=== PATIENT | female | born 1980 | race Caucasian/White ===

== ENCOUNTER 2016-10-12 18:32 | Emergency (ER) ==
--- NOTE | 2016-10-12 20:04 | PROVIDER DOCUMENTATION ---
HPI-Musculoskeletal Pain/Inj - GENERAL Chief Complaint: Back Pain Stated Complaint: FALL (FLANK PAIN) Time Seen by Provider: 10/12/16 20:01 - HX OF PRESENT ILLNESS-MUSKULOSKELTAL Nature of Presenting Problem: Pt fell this morning walking outside slipped on the ice a slid down wheelchair ramp. Pt c/o right SI joint pain with Right buttocks pain. 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) Psychiatric: reports: anxiety, depression Endocrine/Immune: reports: Diabetes Other Conditions: reports: denies history - PRIOR SURGERIES/PROCEDURES Surgical/Procedure History: reports: appendectomy, BTL, - PRIOR HOSPITALIZATIONS Prior Hospitalizations: reports: none - IMMUNIZATION STATUS Childhood Immunizations: See Nurse Assessment Flu Vaccine: See Nurse Assessment - FAMILY HISTORY Family History: reviewed, not pertinent Departure - Departure Time of Disposition Order: 21:41 DIAGNOSIS: Contusion, hip Qualifiers: Encounter type: initial encounter Laterality: right Qualified Code(s): S70.01XA - Contusion of right hip, initial encounter Disposition: HOME 01 Certified Medical Emergency: Emergent Condition: Critical Additional Instructions: ED Follow Up Instructions: You have been treated by a care provider in the Emergency Department. These instructions are being provided to you so you can have an understanding of how to care for yourself upon discharge. Upon discharge from the Emergency Department, you are responsible for making arrangements for follow-up care by a physician of your choice. Take all prescribed medications as directed. Return to the Emergency Department immediately for any new or worsening symptoms. You may call the Physician Referral phone number at [phone] to obtain a list of Physicians who are taking new patients. Prescriptions: Ketorolac [Toradol] 10 mg PO Q6H PRN PRN #6 tablet PRN Reason: Pain
[2016-10-12] MEDS ORDERED: ZOFRAN ODT PO ONE (20:05)
[2016-10-12] MEDS ORDERED: TORADOL IM ONE (20:05)
[2016-10-12 21:59] VITALS: BP 177/72
--- NOTE | 2016-10-13 10:27 | Diag Imaging Result Document ---
PROCEDURE NAME: HIP W/PELVIS BILAT 2 VIEWS - 10/12/2016 BILATERAL HIPS AND PELVIS 5 VIEWS: FINDINGS: There is no fracture identified. There is no dislocation seen. There is a transitional lumbar sacral vertebra noted with possible pseudoarthrosis between the right ala of the transitional and 1st sacral vertebra. IMPRESSION: No evidence of fracture or dislocation.
== END 2016-10-12 21:59 | disposition home or self-care (01) ==
LOC: P.ED 18:32
DX: S70.01XA Contusion of right hip, initial encounter (principal); M54.5 Low back pain; R10.9 Unspecified abdominal pain; M79.1 Myalgia; M79.604 Pain in right leg; M53.3 Sacrococcygeal disorders, not elsewhere classified; I10 Essential (primary) hypertension; E11.9 Type 2 diabetes mellitus without complications; Z79.899 Other long term (current) drug therapy; W00.1XXA Fall from stairs and steps due to ice and snow, initial encounter
CPT/HCPCS: 73521; 96372; J1885

== ENCOUNTER 2019-08-03 08:29 | Inpatient (IN) ==
--- NOTE | 2019-08-03 09:50 | PROVIDER DOCUMENTATION ---
HPI-Rash/Wound/ReCheck - General Chief Complaint: Insect Bite/Sting Stated Complaint: SPIDER BITE ON LEG Time Seen by Provider: 08/03/19 08:59 Source: patient Allergies/Adverse Reactions: Allergies Allergy/AdvReac Type Severity Reaction Status Date / Time No Known Allergies Allergy Verified 07/28/19 00:49 Home Medications: Home Medication List Medication Instructions Recorded Confirmed Last Taken Type Metformin [Glucophage] 1,000 mg PO BID 05/31/19 07/28/19 Unknown History Cephalexin 500 mg PO Q6H #28 tab 07/22/19 07/28/19 Unknown Rx Naproxen 500 mg PO BID PRN PRN #20 tab 07/22/19 07/28/19 Unknown Rx Acetaminophen/Diphenhydramine 1 ea PO Q6HR PRN #15 tab 07/28/19 Unknown Rx [Percogesic Extra Str Caplet] Citalopram Hydrobromide [Celexa] 40 mg PO DAILY 07/28/19 07/28/19 Unknown History Clindamycin HCl 300 mg PO Q6HR #28 cap 07/28/19 Unknown Rx LISINOpril [Prinivil] 20 mg PO DAILY 07/28/19 07/28/19 Unknown History - History of Present Illness-Dermatology Nature of Presenting Problem: Patient is a 39 yowf who complains of painful, draining area to left calf x 2 weeks. Has been prescribed Keflex, came back due to no improvement on Keflex and was changed to Clindamycin. Has been taking the Clindamycin since 07/28/19 with no improvement in s/s. Developed a headache and nausea this morning. Denies fever or any other complaints. Review of Systems - Adult - REVIEW OF SYSTEMS - ADULT Constitutional: reports: no symptoms reported Eyes: reports: no symptoms reported Ears, Nose, Mouth & Throat: reports: no symptoms reported Cardiovascular: reports: no symptoms reported Respiratory: reports: no symptoms reported Gastrointestinal: reports: no symptoms reported Genitourinary: reports: no symptoms reported Musculoskeletal: reports: no symptoms reported Integumentary: reports: see HPI Neurological: reports: no symptoms reported Psychiatric: reports: no symptoms reported Endocrine: reports: no symptoms reported Hematologic/Lymphatic: reports: no symptoms reported Allergic/Immunologic: reports: no symptoms reported All Other Systems: Reviewed and Negative Past History - Adult - PAST MEDICAL HISTORY-ADULT Review of Records: reports: Old Records Reviewed, Nursing Assessment Review, Medications Reviewed, Social history reviewed & non-contributory. 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) Psychiatric: reports: anxiety, depression Endocrine/Immune: reports: Diabetes Diabetes Type: Type 2 Diabetes controlled by:: PO Meds Other Conditions: reports: denies history - PRIOR SURGERIES/PROCEDURES Surgical/Procedure History: reports: appendectomy, BTL, - PRIOR HOSPITALIZATIONS Prior Hospitalizations: reports: none - IMMUNIZATION STATUS Childhood Immunizations: See Nurse Assessment Flu Vaccine: See Nurse Assessment - FAMILY HISTORY Family History: reviewed, not pertinent - SOCIAL HISTORY Smoking: non-smoker Physical Exam-General - PHYSICAL EXAM-ADULT Initial Vital Signs Reviewed: Yes - CONSTITUTIONAL General Appearance: alert, no apparent distress. negative: lethargic, slow to respond - EYES Eyes: PERRL/EOMI - HEAD, EARS, NOSE, MOUTH & THROAT HENMT: normocephalic/atraumatic Progress - PLAN OF CARE/RESULTS Progress/Plan/Lab Results: Vital Signs - 8 hr 08/03/19 08:40 Temperature 98.3 F Pulse Rate 108 H Respiratory Rate 16 Blood Pressure 185/101 O2 Sat by Pulse Oximetry 98 Bedside Urine ED: Urine Bedside Start: 08/03/19 10:17 Freq: NOW Status: Active Protocol: Activity Type Activity Date Activity User E-Sign Co-Sign Detail Recorded Client Recorded Date Recorded By Document 08/03/19 11:29 [id number] 08/03/19 11:29 [id number] 08/03/19 11:29 Point of Care [Bedside Point of Care] -Lot # [id number] - Results Negative -Control Line Visible? Yes Laboratory Results - last 24 hr 08/03/19 08/03/19 08/03/19 10:27 10:27 11:25 WBC 8.97 RBC 5.26 Hgb 11.8 L Hct 38.8 MCV 73.8 L MCH 22.4 L MCHC 30.4 L RDW Std Deviation 14.2 Plt Count 503 H MPV 10.2 Immature Gran % (Auto) 0.0 Neut % (Auto) 52.5 Lymph % (Auto) 41.2 [place] % (Auto) 4.8 Eos % (Auto) 0.9 Baso % (Auto) 0.6 Immature Gran # (Auto) 0.00 Neut # (Auto) 4.71 Lymph # (Auto) 3.70 H [place] # (Auto) 0.43 Eos # (Auto) 0.08 Baso # (Auto) 0.05 Sodium 133 L Potassium 4.2 Chloride 96 L Carbon Dioxide 22 L Anion Gap 15 BUN 14 Creatinine 0.7 Estimated GFR/1.73 m2 > 60 BUN/Creatinine Ratio 20 Glucose 494 H* Calculated Osmolality 289 Calcium 8.3 L Total Bilirubin 0.28 AST 30 ALT 16 Alkaline Phosphatase 124 H Total Protein 6.8 Albumin 3.6 Globulin 3.2 Albumin/Globulin Ratio 1.1 Urine Source CLEAN CATCH Urine Color YELLOW Urine Turbidity CLEAR Urine pH 6.0 Ur Specific [place] 1.049 Urine Protein NEGATIVE Ur Glucose (Stick) >1000 A Ur Ketones (Stick) NEGATIVE Urine Blood MODERATE A Urine Nitrite NEGATIVE Urine Bilirubin NEGATIVE Urobilinogen Dipstick NORMAL Urine Leukocytes NEGATIVE Orders Category Date Time Status UA [ED: Urine Bedside] NOW Care 08/03/19 10:17 Active Diabetic Diet Diet 08/03/19 11:49 Active LOWER LEG-LEFT [RAD] Stat Exams 08/03/19 10:17 Completed BLOOD CULTURE [BLDCUL] Routine Lab 08/03/19 10:50 Received BLOOD CULTURE [BLDCUL] Stat Lab 08/03/19 10:17 Received CBC WITH DIFF [HEME] Stat Lab 08/03/19 10:27 Completed COMPREHENSIVE METABOLIC PANEL [CHEM] Stat Lab 08/03/19 10:27 Completed UA NIMS W/REFLEX CULT [URINALYSIS] Stat Lab 08/03/19 11:25 Results URINE MANUAL MICROSCOPIC [URINALYSIS] Stat Lab 08/03/19 11:25 Results WOUND CULTURE INC GRAM STAIN [RM] Routine Lab 08/03/19 10:27 Received 0.9% Sodium Chloride Inj [Ns] 1,000 ml Med 08/03/19 11:32 Active IV 999 mls/hr Insulin Human Regular [Humulin R] Med 08/03/19 11:32 Discontinued 8 unit IV NOW ONE Morphine Med 08/03/19 09:52 Discontinued 4 mg IV NOW ONE Ondansetron [Zofran] Med 08/03/19 09:52 Discontinued 4 mg IV NOW ONE Pharmacy Order [Vancomycin IV Per Pharmacy] Med 08/03/19 10:00 Ordered 1 each MISC DIRECTED Vancomycin 2,250 mg Med 08/03/19 11:00 Active 0.9% Sodium Chloride Inj [Ns] 500 ml IV ONCE Result Diagrams: 08/03/19 10:27 08/03/19 10:27 - REASSESSMENT Reassessment #1 Time Reassessed: 11:53 Status: improving (Pain improved with meds. Discussed admit plan with pt, she is in agreement.) - XRAY 1 XRAY: Left XRAY Study: Tibia/Fibula ([facility] - [address] [facility], [address], [place] [address] [facility] - [address] [place] [address] Department of Imaging Patient: RIVAS JUSTICEADM Date: 08/03/19#: [id number] : 1980ADM Status: REG [facility]#: [id number] Age/Sex: 39/FRoom/Bed: Loc: ED Ordering Physician: Zuhair Joshi Family Physician: ANGELIC ATKINSON Reason for Procedure: cellulitis Signed EXAM: LOWER LEG-LEFT HISTORY: cellulitis TECHNIQUE: Two views COMPARISON: None. FINDINGS: No fracture. No dislocation. No periosteal reaction or other bony abnormality. IMPRESSION: Negative exam. Electronically signed by Ernesto Ma 08/03/2019 11:08 AM 08/03/19 1108 Interpreting Physician: Ernesto Ma MD Dictated Date/Time: 08/03/19 1107 cc: Zuhair Joshi; Angelic Atkinson) - CONSULTS/PCP/HOSPITALIST Notification #1 *Consult/PCP/Hospitalist*: LAWRENCE Perez MECHANICAL MANUFACTURING ENGINEER Time Discussed: 11:48 Reason/Comments: admission- left leg cellulitis, failed outpatient tx, hyperglycemia Consult Disposition: Admit Departure - Departure Date of Disposition Decision: 08/03/19 Time of Disposition Decision: 11:52 DIAGNOSIS: Failure of outpatient treatment Cellulitis Qualifiers: Site of cellulitis: extremity Site of cellulitis of extremity: lower extremity Laterality: left Qualified Code(s): L03.116 - Cellulitis of left lower limb Diabetes Qualifiers: Diabetes mellitus type: type 2 Diabetes mellitus watermelon harvesting supervisor insulin use: without watermelon harvesting supervisor use Diabetes mellitus complication status: with hyperglycemia Qualified Code(s): E11.65 - Type 2 diabetes mellitus with hyperglycemia Disposition: ADMITTED INPATIENT 09 Certified Medical Emergency: Emergent Condition: Stable Referrals and Follow-Ups: Angelic Atkinson CRNP [Primary Care Provider] - - Critical Care Note This patient required my direct & personal management of CC.: No Attestation - Physician/ RORY Attestation Patient care was provided by Advanced Practice Provider:: Yes Advanced Practice Provider:: Zuhair Joshi Advanced Practice Provider documentation review:: The Mid-level provider documentation, treatment plan and medical decision making was reviewed by the physician who agrees with all treatment and medical decision making by the MLP. The physician spent face to face time with patient:: No Advanced Practice Provider documentation review:: Supervising physician onsite and consulted in the evaluation and care of this patient. The physician did not have a face to face encounter with the patient.
[2019-08-03] MEDS ORDERED: ZOFRAN IV ONE (09:52)
[2019-08-03] MEDS ORDERED: MORPHINE IV ONE ×2 (09:52→20:30)
[2019-08-03] MEDS ORDERED: VANCOMYCIN IV PER PHARMACY MISC SCH (10:00)
[2019-08-03 10:51] LABS: BASO# 0.05 X1000 (0.0-0.2); BASO% 0.6 % (0.0-0.8); EOS# 0.08 X1000 (0.0-0.7); EOS% 0.9 % (0.0-10.0); HEMATOCRIT 38.8 % (37.0-47.0); HEMOGLOBIN 11.8 g/dL (12.0-16.0); LYMPH% 41.2 % (20.5-51.1); MCH 22.4 PG (27-31); MCHC 30.4 g/dL (33-37); MCV 73.8 FL (81-99); MONO# 0.43 X1000 (0.11-0.59); MONO% 4.8 % (1.7-9.3); MPV 10.2 FL (7.4-10.4); NEUT# 4.71 X1000 (1.4-6.5); NEUT% 52.5 % (42.2-75.2); PLT 503 X1000 (130-400); RBC 5.26 XMIL (4.2-5.4); RDW 14.2 % (11.5-14.5); WBC 8.97 X1000 (4.8-10.8)
[2019-08-03] MEDS ORDERED: VANCOMYCIN 2,250 MG in NS 500 ML IV ONE (11:00)
--- NOTE | 2019-08-03 11:10 | Diag Imaging Result Doc PS360 ---
EXAM: LOWER LEG-LEFT HISTORY: cellulitis TECHNIQUE: Two views COMPARISON: None. FINDINGS: No fracture. No dislocation. No periosteal reaction or other bony abnormality. IMPRESSION: Negative exam. Electronically signed by Ernesto Ma 08/03/2019 11:08 AM
[2019-08-03 11:29] LABS: AGAP 15; ALB/GLOB RATIO 1.1; ALBUMIN 3.6 g/dL (3.5-5.0); ALKALINE PHOSPHATASE 124 U/L (32-104); BUN 14 mg/dL (8-22); CALCIUM 8.3 mg/dL (8.8-10.2); CHLORIDE 96 mmol/L (98-107); COSMO 289; CREATININE 0.7 mg/dL (0.5-0.9); ESTIMATED GFR > 60; GLUCOSE 494 mg/dL (70-104); GOT 30 U/L (10-30); GPT 16 U/L (10-36); POTASSIUM 4.2 mmol/L (3.5-5.1); SODIUM 133 mmol/L (136-145); TCO2 22 mmol/L (25-35); TOTAL BILIRUBIN 0.28 mg/dL (0.20-1.00); TOTAL PROTEIN 6.8 g/dL (6.3-8.3)
[2019-08-03] MEDS ORDERED: NS 1,000 ML IV ONE (11:32)
[2019-08-03] MEDS ORDERED: HUMULIN R IV ONE (11:32)
[2019-08-03 11:33] LABS: URINE SOURCE CLEAN CATCH
[2019-08-03 11:37] LABS: BILIRUBIN URINE NEGATIVE (NEGATIVE); BLOOD URINE MODERATE (NEGATIVE); COLOR YELLOW; GLUCOSE URINE >1000 mg/dL (NEGATIVE); KETONE URINE NEGATIVE (NEGATIVE); LEUKOCYTES URINE NEGATIVE (NEGATIVE); NITRITE URINE NEGATIVE (NEGATIVE); PROTEIN URINE NEGATIVE (NEGATIVE); SP GRAVITY URINE 1.049; TURBIDITY URINE CLEAR (CLEAR); UROBILINOGEN URINE NORMAL (NORMAL)
[2019-08-03 11:57] LABS: UR EPITHELIAL CELLS <10 /HPF (<10); URINE BACTERIA NEGATIVE /HPF; URINE RBC <10 /HPF (<10); URINE WBC <10 /HPF (<10)
[2019-08-03 11:58] LABS: URINE CASTS NONE SEEN; URINE CRYSTALS NONE SEEN; URINE SMALL ROUND CELLS NONE SEEN; URINE YEAST PRESENT
--- NOTE | 2019-08-03 13:35 | HISTORY AND PHYSICAL ---
PRIMARY CARE PROVIDER: ROULA Pfeiffer CHIEF COMPLAINT: Bug bite. HISTORY OF PRESENT ILLNESS: Ms Kimble is a 39-year-old female with a past medical history of type 2 diabetes, hypertension, Sandoval's palsy, situational depression who reports 3 weeks ago she believes she had a spider bite to her left calf. She came to the ED to be evaluated the 1st time on July. I believe she was given Keflex at that time. She came back on the with no improvement. She was discharged with clindamycin and came back to the ED today complaining of painful draining area, but developed a headache as well as nausea. Her wound cultures from the show a penicillin, oxacillin resistant Staphylococcus aureus. She denies any fever, chills, chest pain, shortness of breath, nausea, vomiting, diarrhea, dysuria or urinary frequency. Workup in the ED revealed normal white count, afebrile. She was hyperglycemic with a blood glucose of 494. She was initiated on IV vancomycin and given 8 units of regular insulin. We will admit her to the hospital. Continue with IV vancomycin and consult General surgery to see if there is anything that can be drained if there needs to be and I and D and place her on pattern blood sugars with sliding scale and continue her home medications when reconciled. PAST MEDICAL HISTORY: 1. Hypertension. 2. Diabetes mellitus type 2. 3. Situational depression. 4. Sandoval's palsy. PAST SURGICAL HISTORY: 1. Appendectomy. 2. Tubal ligation. 3. section. SOCIAL HISTORY: Denies any tobacco, alcohol or illicit drug use. FAMILY HISTORY: Reviewed and noncontributory. ALLERGIES: No known drug allergies. MEDICATIONS: Home medications are being compiled. PHYSICAL EXAMINATION: VITAL SIGNS: Temperature 98.3 degrees, heart rate 19, blood pressure 148/100. O2 is 100% on room air. GENERAL: Ms. Kimble is a 39-year-old female who is sleeping, who easily awakens. She is lying on the stretcher in no acute distress. HEENT: Atraumatic, normocephalic. PERRL. NECK: Supple. Trachea midline. CARDIOVASCULAR: S1, S2 appreciated. No murmurs, gallops, or rubs noted. RESPIRATORY: Lung sounds clear bilaterally. GASTROINTESTINAL: Abdomen soft, nontender, nondistended. Positive bowel sounds 4 quadrants. LOWER EXTREMITIES: She does have a left lower extremity cellulitis. She does have a bull's-eye to her inner calf area that has some eschar in the center with some clear drainage. NEUROLOGIC: No focal deficits noted. DIAGNOSTIC DATA: Left lower extremity x-ray, negative exam. LABORATORY DATA: White count 8, hemoglobin and hematocrit 11 and 38, platelet count is 503,000. Sodium 133, potassium 4.2, BUN 14, creatinine 0.7. Blood glucose is 494. ASSESSMENT AND PLAN: 1. Failed outpatient treatment left lower extremity methicillin-resistant Staphylococcus aureus infection. Last cultures show susceptible to vancomycin, resistant to oxacillin and penicillin. Consult general surgery to see if anything can be drained. 2. Diabetes mellitus type 2 with hyperglycemia. We will continue home medications when verified. Place her on sliding scale with pattern blood sugars. 3. Hypertension. We will continue her home lisinopril when verified. 4. Depression. We will continue home medications when verified. 5. Further recommendation to follow physician evaluation, laboratory and diagnostic data. Dictated by ROULA Johnson for Satya Avalos MD cc: MD Angelic Roca CRNP Patient presenting with a wound on the left leg from a spider bite. Positive for mrsa. I agree with the A/P of the ROULA. Dr. Bailey SHARMA
[2019-08-03] MEDS: ZOFRAN IV PRN (16:37)
[2019-08-03] MEDS: HUMALOG SUBQ SCH ×2 (16:37→21:02)
[2019-08-03] MEDS ORDERED: FLU VACCINE IM ONE (17:15)
[2019-08-03] MEDS: GLUCOPHAGE PO SCH (17:22)
[2019-08-03] MEDS ORDERED: HUMALOG SUBQ ONE (17:31)
[2019-08-03] MEDS: NORCO-10 PO PRN (18:03)
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
[2019-08-04] MEDS: VANCOMYCIN 1,800 MG in NS 250 ML IV SCH ×2 (00:42→11:41)
[2019-08-04] MEDS: NORCO-10 PO PRN ×2 (00:44→06:30)
[2019-08-04] MEDS: HUMALOG SUBQ SCH ×4 (06:31→21:33)
[2019-08-04 08:25] LABS: BASO# 0.04 X1000 (0.0-0.2); BASO% 0.5 % (0.0-0.8); EOS# 0.15 X1000 (0.0-0.7); EOS% 1.9 % (0.0-10.0); HEMATOCRIT 39.3 % (37.0-47.0); HEMOGLOBIN 11.7 g/dL (12.0-16.0); LYMPH# 4.21 X1000 (1.2-3.4); LYMPH% 52.2 % (20.5-51.1); MCH 22.5 PG (27-31); MCHC 29.8 g/dL (33-37); MCV 75.4 FL (81-99); MONO# 0.47 X1000 (0.11-0.59); MONO% 5.8 % (1.7-9.3); MPV 9.9 FL (7.4-10.4); NEUT% 39.6 % (42.2-75.2); PLT 440 X1000 (130-400); RBC 5.21 XMIL (4.2-5.4); RDW 14.4 % (11.5-14.5); WBC 8.07 X1000 (4.8-10.8)
[2019-08-04 08:42] LABS: EOS 1 % (1-10); LYMPHS 48 % (21-51); MONO 8 % (1-9); SEGS 43 % (42-75)
[2019-08-04 08:45] LABS: HEMOGLOBIN A1C 10.2 % (4.8-6.0)
[2019-08-04] MEDS: PRINIVIL PO SCH (09:11)
[2019-08-04] MEDS: GLUCOPHAGE PO SCH ×2 (09:12→17:23)
[2019-08-04] MEDS: CELEXA PO SCH (09:12)
[2019-08-04 09:26] LABS: AGAP 13; ALB/GLOB RATIO 1.4; ALBUMIN 3.4 g/dL (3.5-5.0); ALKALINE PHOSPHATASE 108 U/L (32-104); BUN 16 mg/dL (8-22); CALCIUM 8.7 mg/dL (8.8-10.2); CHLORIDE 96 mmol/L (98-107); COSMO 275; CREATININE 0.5 mg/dL (0.5-0.9); ESTIMATED GFR > 60; GLUCOSE 226 mg/dL (70-104); GOT 34 U/L (10-30); GPT 16 U/L (10-36); MAGNESIUM 1.7 mg/dL (1.5-2.7); POTASSIUM 4.4 mmol/L (3.5-5.1); SODIUM 133 mmol/L (136-145); TCO2 24 mmol/L (25-35); TOTAL BILIRUBIN 0.26 mg/dL (0.20-1.00); TOTAL PROTEIN 5.9 g/dL (6.3-8.3)
[2019-08-04] MEDS: TYLENOL PO PRN (11:42)
[2019-08-04] MEDS: ZOFRAN IV PRN (11:42)
--- NOTE | 2019-08-04 12:38 | PROGRESS NOTE ---
DATE: 08/04/2019 SUBJECTIVE: The patient is resting in bed, not in any obvious distress. OBJECTIVE: Vital Signs: Temperature 97.5 degrees, pulse 106, respirations 20, blood pressure 149/94, oxygen saturation is 98%. HEENT: Atraumatic, normocephalic. Cardiovascular: S1, S2. Respiratory: Has evidence of good air entry bilaterally. Abdomen: Soft, nontender. No masses felt. Extremities: Wound site, left lower extremity, noted. In the region of the medial calf on the left, there is about a 5 to 6 cm area of erythema, and also central area of necrotic change. Central Nervous System: No obvious focal deficit noted. LABORATORY DATA: WBC is 8.07, hematocrit is 39.3, with a platelet count of 440,000. Sodium is 133, potassium 4.4, chloride 96, bicarb 24, BUN is 16, creatinine 0.3. UA shows a moderate amount of blood. ASSESSMENT AND PLAN: 1. Methicillin-resistant staphylococcus aureus infected wound, left leg. Continue local wound care as well as intravenous antibiotics. Per surgical team, no plan for surgery at this time. 2. Diabetes mellitus. Monitor blood sugar levels. Maintain the patient on sliding scale insulin. 3. Hypertension. Continue current antihypertensive regimen. 4. Depression. Continue current regimen. 5. Deep vein thrombosis prophylaxis. Lovenox. 6. Gastrointestinal prophylaxis. Proton pump inhibitor. cc: Satya Avalos MD
--- NOTE | 2019-08-04 15:09 | GENERAL SURGERY PROGRESS NOTE ---
DATE: 08/04/2019 SUBJECTIVE: She feels about the same. No fevers. OBJECTIVE: Pulse 80, blood pressure 149/87.General: She is alert. Cardiovascular: Normal rate. Extremity: Her left medial calf wound shows improving erythema but increase in the central necrotic eschar. There is scant amount of purulent material. There is no fluctuance. LABORATORY DATA: White count is 8, hematocrit 39, creatinine 0.5, glucose remain elevated to 200. ASSESSMENT/PLAN: A 39-year-old female necrotic wound with possible superimposed cellulitis associated in the setting of diabetes. This is concerning for a brown recluse bite. I have recommended excisional debridement of the necrotic central portion tomorrow in the operating room. We discussed risk of bleeding, delayed healing, need for further debridement. She understands all this and consents. We will make her NPO at midnight and plan for surgery tomorrow. cc: Robert Acuna MD
--- NOTE | 2019-08-04 16:44 | Diag Imaging Result Doc PS360 ---
EXAM: US ABDOMEN-COMPLETE INDICATION: abn lfts COMPARISON: Right upper quadrant ultrasound dated 10/05/2015 FINDINGS: There are several small shadowing stones in the gallbladder lumen. No gallbladder wall thickening or pericholecystic fluid is appreciated. The common bile duct is normal in diameter. Sonographic Garza's sign was reported to be negative. The liver is grossly unremarkable. Portal venous flow is hepatopetal. The pancreas is obscured by bowel gas. The aorta and IVC are grossly unremarkable. The spleen is enlarged measuring up to 16.9 cm in the greatest dimension. There is a 7 mm hyperechoic lesion in the spleen. Although nonspecific, this statistically most likely represents a small splenic hemangioma, especially given the increased echotexture. Both renal collecting systems are mildly prominent, which is of unknown acuity. IMPRESSION: 1.Cholelithiasis. 2.Splenomegaly and a likely subcentimeter splenic hemangioma. 3.Mild prominence of both renal collecting systems of unknown acuity. Electronically signed by Michael Bal 08/04/2019 4:42 PM
[2019-08-05] MEDS: VANCOMYCIN 1,800 MG in NS 250 ML IV SCH ×2 (00:20→12:07)
[2019-08-05] MEDS: NORCO-10 PO PRN ×3 (02:24→23:35)
[2019-08-05] MEDS: ZOFRAN IV PRN ×2 (02:24→10:12)
[2019-08-05] MEDS: HUMALOG SUBQ SCH ×4 (06:51→23:36)
[2019-08-05 07:04] LABS: BASO# 0.03 X1000 (0.0-0.2); BASO% 0.2 % (0.0-0.8); EOS# 0.02 X1000 (0.0-0.7); EOS% 0.1 % (0.0-10.0); HEMATOCRIT 42.1 % (37.0-47.0); HEMOGLOBIN 12.5 g/dL (12.0-16.0); IMM GRAN# 0.02 X1000 (0.0-0.04); IMM GRAN% 0.1 % (0.0-0.5); LYMPH# 2.43 X1000 (1.2-3.4); LYMPH% 15.2 % (20.5-51.1); MCH 22.2 PG (27-31); MCHC 29.7 g/dL (33-37); MCV 74.9 FL (81-99); MONO# 0.38 X1000 (0.11-0.59); MONO% 2.4 % (1.7-9.3); MPV 9.9 FL (7.4-10.4); NEUT# 13.07 X1000 (1.4-6.5); PLT 538 X1000 (130-400); RBC 5.62 XMIL (4.2-5.4); RDW 14.6 % (11.5-14.5); WBC 15.95 X1000 (4.8-10.8)
[2019-08-05 07:15] LABS: AGAP 12; ALB/GLOB RATIO 1.1; ALBUMIN 3.7 g/dL (3.5-5.0); ALKALINE PHOSPHATASE 116 U/L (32-104); BUN 13 mg/dL (8-22); CALCIUM 9.6 mg/dL (8.8-10.2); CHLORIDE 94 mmol/L (98-107); COSMO 278; CREATININE 0.6 mg/dL (0.5-0.9); ESTIMATED GFR > 60; GLUCOSE 265 mg/dL (70-104); GOT 47 U/L (10-30); GPT 24 U/L (10-36); POTASSIUM 4.1 mmol/L (3.5-5.1); SODIUM 134 mmol/L (136-145); TCO2 28 mmol/L (25-35); TOTAL BILIRUBIN 0.29 mg/dL (0.20-1.00)
[2019-08-05 07:26] LABS: HYPOCHROM 1+; LYMPHS 14 % (21-51); MICROCYTOSIS 2+; MONO 2 % (1-9); SEGS 84 % (42-75)
[2019-08-05] MEDS ORDERED: LOVENOX SUBQ SCH (09:00)
[2019-08-05] MEDS ORDERED: PEPCID ONE (09:19)
[2019-08-05] MEDS ORDERED: REGLAN ONE (09:19)
[2019-08-05] MEDS ORDERED: SENSORCAINE-MPF 0.5%/EPI 1:200,000 ONE (09:27)
[2019-08-05] MEDS ORDERED: DIPRIVAN 1% ONE (09:30)
[2019-08-05] MEDS ORDERED: SUFENTA ONE (09:49)
[2019-08-05] MEDS ORDERED: ZOFRAN ONE (10:12)
[2019-08-05 10:42] LABS: HEPATITIS PROFILE ACUTE SEE COMMENTS
[2019-08-05] MEDS: LANTUS INSULIN SUBQ SCH (12:07)
[2019-08-05] MEDS: CELEXA PO SCH (12:08)
[2019-08-05] MEDS: PRINIVIL PO SCH (12:09)
--- NOTE | 2019-08-05 12:27 | OPERATIVE NOTE ---
PROCEDURE DATE: 08/05/2019 PREOPERATIVE DIAGNOSIS: Necrotic wound, left medial calf. POSTOPERATIVE DIAGNOSIS: Necrotic wound, left medial calf. PROCEDURE PERFORMED: Excisional debridement of 2.5 x 2 cm wound dons of the calf down the subcutaneous tissue. ESTIMATED BLOOD LOSS: 5 mL. SPECIMEN: Necrotic tissue. ANESTHESIA: General. INDICATIONS: A 39-year-old female, who has had a necrotic wound with cellulitis, left medial calf, consistent with a brown recluse bite. OPERATIVE FINDINGS: There was necrotic eschar centrally. There is receding erythema surrounding it. There was no significant purulence, but the necrosis extended down subcutaneous tissue. We debrided back to healthy tissue. OPERATIVE NOTE: Risks, benefits and alternatives were discussed with the patient, and she consented to the procedure, seen preoperatively, surgical site was confirmed and marked. She was taken to the operating room, placed in supine position and general anesthesia induced. Her leg was prepped with chlorhexidine solution, draped in the usual fashion after time-out. A 15 blade scalpel was used to excise the necrotic eschar back to healthy bleeding tissue. We obtained hemostasis, irrigated the wound. A Vashe dressing was applied, as well as a Kerlix. He tolerated it well. No complication. cc: Robert Acuna MD
--- NOTE | 2019-08-05 18:36 | PROGRESS NOTE ---
DATE: 08/05/2019 INTERVAL HISTORY: Status post debridement of cellulitis and wound this morning. Doing reasonably well afterwards. MRSA growing from wound culture, but blood cultures negative so far. No new complaints. No acute events overnight. REVIEW OF SYSTEMS: Twelve-point review of systems negative except as per interval history. LABS: WBCs 15.9, hemoglobin 12.5, hematocrit 42.1, platelets 538. Sodium 134, potassium 4.1, BUN 13, creatinine 0.6, glucose 201 to 261. Wound culture positive for presumptive MRSA. Blood cultures no growth. VITALS: T-max 98.3, pulse 92, respirations 14, blood pressure 147/82, O2 saturation 98% on room air. PHYSICAL EXAMINATION: General: No acute distress. Vitals: As above. HEENT: Normocephalic, atraumatic. Moist mucous membranes. Cardiovascular: Regular rate and rhythm. No murmurs noted. Pulmonary: Clear to auscultation bilaterally. No wheezing, rales, or rhonchi. Abdomen: Soft, nontender, nondistended. Bowel sounds positive. Extremities: Peripheral pulses intact. Left calf wound is bandaged. Bandage clean, dry, intact. Neurologic: Cranial nerves grossly intact. No focal deficits identified. Psychiatric: Normal mood and affect. Asleep but easily arousable. Oriented x3. ASSESSMENT AND PLAN: 1. Left leg infected wound, possible spider bite. The patient had a wound with central necrosis which surgery thought was concerning for a brown recluse bite. Culture growing methicillin- resistant Staphylococcus aureus. Patient is already on antibiotics with vancomycin, which we will continue. Status post debridement today. We will continue to monitor the wound and see how she does. Continue antibiotics and monitor. 2. Diabetes mellitus, control not ideal. We will start low-dose Lantus and monitor. A1c is 10.2 on her home metformin, so there is a strong possible that she will need insulin on discharge. 3. Hypertension. Blood pressure control acceptable on home lisinopril. Monitor. 4. Hyponatremia, mildly symptomatic and stable. No need for further intervention at this time.
[2019-08-05] MEDS: PERIDEX MT SCH (23:39)
[2019-08-06] MEDS: VANCOMYCIN 2,000 MG in NS 500 ML IV SCH ×2 (02:21→16:12)
[2019-08-06] MEDS: NORCO-10 PO PRN ×3 (06:45→22:07)
[2019-08-06] MEDS: HUMALOG SUBQ SCH ×3 (06:46→17:35)
[2019-08-06] MEDS: CELEXA PO SCH (09:29)
[2019-08-06] MEDS: PRINIVIL PO SCH (09:29)
[2019-08-06] MEDS: PERIDEX MT SCH ×2 (09:29→22:07)
[2019-08-06] MEDS: LANTUS INSULIN SUBQ SCH (09:30)
[2019-08-06] MEDS: TYLENOL PO PRN (09:34)
--- NOTE | 2019-08-06 14:43 | GENERAL SURGERY PROGRESS NOTE ---
DATE: 08/06/2019 SUBJECTIVE: The patient has had no new complaints or concerns overnight. Her leg continues to hurt. OBJECTIVE: She is afebrile. Vital signs are stable.General: She is awake, alert, oriented x3. No acute distress. Extremities: The left thigh wound was examined. There is some surrounding induration and erythema, but no purulence or necrotic tissue. The wound appears clean. It is quite tender to touch. LABORATORY: None today. ASSESSMENT AND PLAN: A 39-year-old female, status post debridement of necrotic skin wound on the left thigh, likely due to a brown recluse bite. We will order an ice pack for pain relief. Continue her antibiotics another day and dressing changes and I think she will be ready for discharge quite soon. cc: Dwight Jaime MD
--- NOTE | 2019-08-06 18:38 | PROGRESS NOTE ---
DATE: 08/06/2019 SUBJECTIVE: At this moment this patient is complaining of left leg pain. Her blood sugar has been slightly elevated. She has been on Lantus, but I will stop it because probably she is not going to be able to afford this medication. As per the patient, she does not have insurance, so I will change it to insulin 70/30 which probably she can get and is affordable. OBJECTIVE: Vital signs: Temperature 98.3 degrees, pulse 81, respiratory rate 20, blood pressure 138/68, oxygen saturation 98% on room air.HEENT: Head normocephalic, no trauma. PERRLA. Neck supple. No JVD. No masses. Central trachea. Chest clear to auscultation. No wheezing. No rales. Abdomen is soft, nontender, nondistended. No hepatosplenomegaly. Extremities: Peripheral pulses are intact. Left calf wound is bandaged. It looks clean. Neurological: Alert and oriented x3. No focal deficits. LABORATORY DATA: No lab work done today. Blood sugar 280. ASSESSMENT AND PLAN: 1. Necrotic skin wound on the left leg, likely due to spider bite. Culture is growing methicillin-resistant Staphylococcus aureus. Surgery Department on board. We will continue with same management for now. 2. Uncontrolled type 2 diabetes. Her hemoglobin A1c is 10.2. She has been started on Lantus but I will switch it to insulin 70/30. I also increased the dose of this medication as well. I will put her back on metformin. 3. Hypertension, stable. Continue with lisinopril. 4. Hyponatremia, likely due to pseudohyponatremia due to hyperglycemia, stable. I had a large conversation with this patient about insulin treatment and diabetes. I recommended diet, exercise and weight loss. She seems to understand. Her hemoglobin A1c is elevated at 10.2, and I checked her hemoglobin A1c back in 2017 and it was about the same. cc: Jesus Meneses MD
[2019-08-06] MEDS: GLUCOPHAGE PO SCH (22:08)
[2019-08-07] MEDS: VANCOMYCIN 2,000 MG in NS 500 ML IV SCH (03:28)
[2019-08-07] MEDS: HUMALOG SUBQ SCH ×5 (03:48→22:18)
[2019-08-07] MEDS ORDERED: INSULIN PEN NEEDLES ONE (06:34)
[2019-08-07] MEDS: NORCO-10 PO PRN ×2 (07:00→15:53)
[2019-08-07 07:12] LABS: BASO# 0.03 X1000 (0.0-0.2); BASO% 0.3 % (0.0-0.8); EOS# 0.13 X1000 (0.0-0.7); EOS% 1.2 % (0.0-10.0); HEMATOCRIT 36.7 % (37.0-47.0); HEMOGLOBIN 10.7 g/dL (12.0-16.0); IMM GRAN# 0.02 X1000 (0.0-0.04); IMM GRAN% 0.2 % (0.0-0.5); LYMPH# 5.18 X1000 (1.2-3.4); MCH 22.5 PG (27-31); MCHC 29.2 g/dL (33-37); MCV 77.3 FL (81-99); MONO% 4.4 % (1.7-9.3); MPV 9.8 FL (7.4-10.4); NEUT% 47.9 % (42.2-75.2); PLT 485 X1000 (130-400); RBC 4.75 XMIL (4.2-5.4); RDW 14.5 % (11.5-14.5); WBC 11.26 X1000 (4.8-10.8)
[2019-08-07 08:01] LABS: AGAP 11; BUN 14 mg/dL (8-22); CALCIUM 8.7 mg/dL (8.8-10.2); CHLORIDE 97 mmol/L (98-107); COSMO 273; CREATININE 0.6 mg/dL (0.5-0.9); ESTIMATED GFR > 60; GLUCOSE 178 mg/dL (70-104); POTASSIUM 4.3 mmol/L (3.5-5.1); SODIUM 134 mmol/L (136-145); TCO2 26 mmol/L (25-35)
[2019-08-07] MEDS ORDERED: LANTUS INSULIN SUBQ SCH (09:00)
[2019-08-07] MEDS: PERIDEX MT SCH ×2 (09:14→21:08)
[2019-08-07] MEDS: GLUCOPHAGE PO SCH ×2 (09:14→18:00)
[2019-08-07] MEDS: PRINIVIL PO SCH (09:15)
[2019-08-07] MEDS: NOVOLOG MIX 70/30 SUBQ SCH ×2 (09:15→09:16)
[2019-08-07] MEDS: CELEXA PO SCH (09:15)
--- NOTE | 2019-08-07 10:25 | GENERAL SURGERY PROGRESS NOTE ---
DATE: 08/07/2019 SUBJECTIVE: She complains of soreness in her left leg. OBJECTIVE: Vital signs: She is afebrile. Vital signs are stable. General: She is awake, alert, and in no acute distress. GI: Soft, nontender, nondistended. Extremities: Left leg was examined. No significant swelling or erythema. The bandage is clean and dry. LABS: White blood cell count 11. Wound culture is positive for Staph aureus, resistant to oxacillin, so MRSA. ASSESSMENT AND PLAN: This is a 39-year-old female with a left leg infection with methicillin- resistant Staphylococcus aureus (MRSA), probable Brown Recluse spider bite, now status post debridement of necrotic skin. I will go ahead and change her to Bactrim. Dr. Acuna will re- evaluate her tomorrow, and I suspect she will be able to be discharged tomorrow. cc: Dwight Jaime MD
[2019-08-07] MEDS ORDERED: NOVOLOG MIX 70/30 SUBQ SCH ×2 (17:00→17:30)
--- NOTE | 2019-08-07 17:35 | PROGRESS NOTE ---
DATE: 08/07/2019 SUBJECTIVE: This patient is still complaining of some left leg pain. I evaluated the wound and she has around a 3 cm diameter wound with a clean base and some granulation tissue. I do not see any signs of infection at this moment and the redness is better. Surgery on board. Probably this patient will be discharged tomorrow. The vancomycin has been stopped and she has been placed on p.o. treatment with doxycycline. OBJECTIVE: Vital Signs: Temperature 98 degrees, pulse 89, respiratory rate 20, blood pressure 144/76, oxygen saturation 100% on room air. HEENT: Head normocephalic. No trauma. PERRLA. Neck: Supple. No JVD. No masses. Central trachea. Chest: Clear to auscultation. No wheezing. No rales. Abdomen: Soft, nontender, nondistended. No hepatosplenomegaly. Extremities: Peripheral pulses are intact. Left calf wound is covered with a new dressing. Her wound looks clean and she has a wound of around 3 cm of diameter with a clean base. It is a little bit deep, around 0.5 cm deep. Neurological: No deficits. LABORATORY: WBC 11.2, hemoglobin 10.7, hematocrit 36.7, platelets 485,000. Sodium 134, potassium 4.3, chloride 97, bicarbonate 26, BUN 14, creatinine 0.6, glucose 178, calcium 8.7. ASSESSMENT AND PLAN: 1. Necrotic skin wound of the left leg, likely due to spider bite. Culture grew MRSA. She used vancomycin for a few days and now she is on doxycycline. I agree with the treatment. Continue same management. 2. Uncontrolled type 2 diabetes. Hemoglobin A1c is 10.2. She was started on Lantus, but I switched it to insulin 70/30. She seems to be tolerating this medication well. Continue with metformin. 3. Hypertension, stable. Continue with lisinopril. 4. Hyponatremia. This is likely due to pseudohyponatremia due to hyperglycemia. Today the sodium level is 134. cc: Jesus Meneses MD
[2019-08-07] MEDS: TYLENOL PO PRN (20:30)
[2019-08-07] MEDS: DOXYCYCLINE PO SCH (21:08)
--- NOTE | 2019-08-08 04:19 | GENERAL SURGERY PROGRESS NOTE ---
DATE: 08/07/2019 CORRECTION REPORT We will not start her on Bactrim due to an interaction with an KEVIN inhibitor. Instead, we will start doxycycline. cc: Dwight Jaime MD
[2019-08-08] MEDS: HUMALOG SUBQ SCH ×3 (06:11→15:51)
[2019-08-08 07:37] LABS: BASO# 0.02 X1000 (0.0-0.2); BASO% 0.2 % (0.0-0.8); EOS# 0.07 X1000 (0.0-0.7); EOS% 0.6 % (0.0-10.0); HEMATOCRIT 37.3 % (37.0-47.0); IMM GRAN# 0.02 X1000 (0.0-0.04); IMM GRAN% 0.2 % (0.0-0.5); LYMPH# 4.44 X1000 (1.2-3.4); MCH 22.4 PG (27-31); MCHC 29.5 g/dL (33-37); MCV 76.1 FL (81-99); MONO# 0.54 X1000 (0.11-0.59); MONO% 4.3 % (1.7-9.3); MPV 9.9 FL (7.4-10.4); NEUT% 59.7 % (42.2-75.2); PLT 502 X1000 (130-400); RDW 14.4 % (11.5-14.5); WBC 12.69 X1000 (4.8-10.8)
[2019-08-08 07:58] LABS: AGAP 10; BUN 12 mg/dL (8-22); CALCIUM 8.6 mg/dL (8.8-10.2); CHLORIDE 98 mmol/L (98-107); COSMO 276; CREATININE 0.6 mg/dL (0.5-0.9); ESTIMATED GFR > 60; GLUCOSE 151 mg/dL (70-104); POTASSIUM 4.1 mmol/L (3.5-5.1); SODIUM 137 mmol/L (136-145); TCO2 29 mmol/L (25-35)
[2019-08-08] MEDS: PERIDEX MT SCH (09:36)
[2019-08-08] MEDS: GLUCOPHAGE PO SCH (09:36)
[2019-08-08] MEDS: PRINIVIL PO SCH (09:36)
[2019-08-08] MEDS: NOVOLOG MIX 70/30 SUBQ SCH (09:36)
[2019-08-08] MEDS: DOXYCYCLINE PO SCH (09:36)
[2019-08-08] MEDS: CELEXA PO SCH (09:36)
[2019-08-08] MEDS: NORCO-10 PO PRN (09:38)
[2019-08-08 11:08] VITALS: BP 134/75
[2019-08-08] MEDS ORDERED: ZOFRAN PO PRN (12:47)
[2019-08-08] MEDS ORDERED: INSULIN PEN NEEDLES ONE (15:06)
--- NOTE | 2019-08-08 21:10 | GENERAL SURGERY PROGRESS NOTE ---
DATE: 08/08/2019 SUBJECTIVE: She feels okay. Some pain. No fevers. Pulse 81 blood pressure 134/75. Dressing changes going well. OBJECTIVE: General: On exam, she is alert. Cardiovascular: Normal rate. Extremities: Left leg cellulitis is receding. I saw a picture of the wound that shows healthy granulation tissue in the bed of the wound and no evidence of any further necrosis. White count 12, hematocrit 37, creatinine 0.6. ASSESSMENT AND PLAN: A 39-year-old female status post excisional debridement of necrotic wound, left calf. This seems to be healing. I would recommend continuing lavage wet-to-dry dressings to this area. I can see her in 2 weeks at [place]. Otherwise, I will defer discharge to the medicine services. This did not appear to be an infectious wound. She did have some associated cellulitis, but I think this was in fact a necrotic wound related to brown recluse bite, given the clinical scenario. We will continue local wound care while inpatient, and as an outpatient. cc: Robert Acuna MD
--- NOTE | 2019-08-09 19:03 | DISCHARGE SUMMARY ---
ADMISSION DATE: 08/03/2019 DISCHARGE DATE: 08/08/2019 DISCHARGE DIAGNOSES: 1. Necrotic skin wound of the left leg, likely due to spider bite. 2. Methicillin-resistant Staphylococcus aureus infection of the necrotic skin wound of the left leg. 3. Uncontrolled type 2 diabetes with a hemoglobin A1c of 10.2. 4. Hypertension. 5. Hyponatremia, resolved. PROCEDURES PERFORMED: 1. Lower extremity x-ray dated 08/03/2019. Impression, negative exam. 2. Abdomen ultrasound dated 08/04/2019. Impression, cholelithiasis, splenomegaly and likely subcentimeter splenic hemangioma, mild prominence of both renal collecting systems of unknown acuity. 3. Excisional debridement of 2.5 x 2 cm wound of the calf down to the subcutaneous tissue due to necrotic wound of the left medial calf dated 08/05/2019. HOSPITAL COURSE: A 39-year-old female with a past medical history of uncontrolled diabetes, hypertension, Sandoval's palsy, situational depression who reported 3 weeks ago she believed she had a spider bite to her left calf. She was admitted on 08/03/2019. She presented to the emergency department apparently for the very 1st time on July 22, and she was given Keflex at that time. She came in on the with no improvement. She was discharged with clindamycin and came to the emergency department again this time on 08/03/2019 and was admitted. It was more painful and draining in that area, and also she developed nausea as well as headache. Her culture from the showed MRSA staphylococcus. She denied any fever, chills, chest pain, shortness of breath, nausea, vomiting, diarrhea, dysuria, or urinary frequency. Workup in the emergency department showed normal white blood cell count. No fever. She was hyperglycemic with a blood sugar around 494. She was initiated with IV vancomycin and given 8 units of insulin regular. She was admitted. Surgery Department was consulted. They did an excisional debridement of the 2.5 x 2 cm wound that actually went down to the subcutaneous tissue. She continued with antibiotics and repeated culture showed MRSA again. After switching the antibiotic from vancomycin to doxycycline, she continued to improve. Actually, the white blood cell count was trending down from 15 to 11 and today is 12, but she is completely afebrile. After an evaluation by Surgery Department who had decided to send this patient home. Her wound looks clean. There is no sign of secretion or bleeding. She seems to be tolerating p.o. She was having some headache on and off. Because of her high hemoglobin A1c of 10.2 and uncontrolled type 2 diabetes, I decided to put this patient on insulin. Actually, her blood sugar has been more stable lately. OBJECTIVE: Vital Signs: Temperature 98.2 degrees, pulse 71, respiratory rate 18, blood pressure 134/75, oxygen saturation 100% on room air. HEENT: Head normocephalic, no trauma. PERRLA. Neck: Supple. No JVD. No masses. Central trachea. Chest: Clear to auscultation. No wheezing. No rales. Abdomen: Soft, nontender, nondistended. No hepatosplenomegaly. Extremities: Peripheral pulses are intact. Left calf wound is covered with a dressing, but the wound itself looks clean. The base is clean. There are no signs of secretion. Neurological: No deficits. LABORATORY: WBC 12, hemoglobin 11, hematocrit 37.3, platelet count 502,000. Sodium 137, potassium 4.1, chloride 98, bicarbonate 29, BUN 12, creatinine 0.6, glucose 151, calcium 8.6. DISCHARGE MEDICATIONS: 1. Acetaminophen 650 mg p.o. q.6 hours as needed for fever. 2. Celexa 40 mg p.o. daily. 3. Doxycycline 100 mg p.o. b.i.d. for 1 more week. 4. Fluconazole 150 mg p.o. once in 2 days. She already received 1 dose yesterday for yeast infection in the vaginal area. 5. [place] 10 one tablet p.o. q.6 hours as needed for pain. 6. Insulin NPH Novolin 70/30 10 units subcutaneous in the morning and 5 unit subcutaneous in the afternoon. This has been explained n detail to the patient and it has been placed in the prescription as well. 7. Lisinopril 20 mg p.o. daily. 8. Metformin 1000 mg p.o. b.i.d. 9. Naproxen 500 mg p.o. b.i.d. as needed for mild pain. TIME SPENT: Time discharging this patient 20 minutes. cc: Jesus Meneses MD
== END 2019-08-08 16:21 | disposition home or self-care (01) | DRG 902 ==
LOC: ED 08:29 → 4N 12:59 → SUATTDRO 12:59
PROVIDERS: ATTEND Internal Medicine